=== PATIENT | female | born 2005 | race Caucasian/White ===

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

== ENCOUNTER → 2023-06-01 | Outpatient (CLI) | payer OTHER ==
[2023-06-01 15:29] LABS: Ionized Calcium 5.3 mg/dL (4.5-5.3)
[2023-06-01 18:54] LABS: Basophils # (A) 0.03 X 10*3/uL (0.00-0.10); Basophils % (A) 0.4 %; Eosinophils # (A) 0.18 X 10*3/uL (0.04-0.35); Eosinophils % (A) 2.4 %; HCT 40.7 % (37.2-46.3); HGB 13.6 g/dL (12.0-15.0); Lymphocytes # (A) 3.13 X 10*3/uL (0.90-5.00); Lymphocytes % (A) 41.8 %; MCH 30.4 pg (27.0-32.0); MCHC 33.4 g/dL (32.0-37.0); MCV 91.1 FL (80.0-97.0); Mean Platelet Volume 10.4 FL (9.5-12.2); Monocytes # (A) 0.46 X 10*3/uL (0.20-1.00); Monocytes % (A) 6.1 %; NRBC Per 100 WBC 0 X 10*3/uL (0.00-0.01); Neutrophils # (A) 3.67 X 10*3/uL (1.80-7.70); Platelet Count 257 X 10*3/uL (140-440); RBC 4.47 X 10*6/uL (4.10-5.20); RDW 12.5 % (11.5-14.5); WBC 7.49 X 10*3/uL (4.50-10.00)
[2023-06-01 19:26] LABS: % Iron Saturation 21.37 (12.00-45.00); ALT 17 U/L (8-44); AST 21 U/L (13-35); Albumin/Globulin Ratio 2.17 Ratio (1.60-3.17); Alkaline Phosphatase 82 U/L (41-126); BUN/Creat Ratio 11.29 Ratio (12.00-20.00); Blood Urea Nitrogen 7.9 mg/dL (9.0-27.0); Calcium 10.2 mg/dL (8.7-10.3); Carbon Dioxide 23.6 mmol/L (21.6-31.8); Chloride 102 mmol/L (96-109); Ferritin 43.3 ng/mL (10.0-291.0); Globulin 2.3 g/dL (1.6-3.3); Glucose 93 mg/dL (70-110); Iron 84 UG/DL (50-170); Magnesium 1.9 mg/dL (1.5-2.4); Potassium 4.2 mmol/L (3.5-5.5); Sodium 138 mmol/L (135-145); Total Bilirubin 0.3 mg/dL (0.3-1.2); Total Iron Binding Capacity 393 UG/DL (228-460); Total Protein 7.3 g/dL (6.2-8.2)
== END | disposition home or self-care (01) ==
LOC: LABWHC1 14:15
PROVIDERS: ATTEND Registered Nurse
DX: E05.90 Thyrotoxicosis, unspecified without thyrotoxic crisis or storm (principal); R00.2 Palpitations
CPT/HCPCS: 36415; 80053; 82306; 82330; 82607; 82728; 82746; 83540; 83550; 83735; 83970; 84439; 84443; 84481; 85025; 86376

== ENCOUNTER → 2024-03-14 | Outpatient (CLI) | payer OTHER ==
[2024-03-14 15:58] VITALS: BP 108/74; PULSE 95; RESP 18; TEMP 97.9
--- NOTE | 2024-03-14 16:40 | P.SLEEP ---
History of Present Illness DATE: 03/14/2024 CONSULTATION/NEW PATIENT EVALUATION HISTORY OF PRESENT ILLNESS/SLEEP-WAKE EVALUATION: 18-year-old girl had been e valuated in the sleep center for extremely long periods of sleep, difficulties with waking up from sleep and also difficulties with initiating sleep at night. SLEEP SCHEDULE: Usually sleep schedule from 911 PM to 27 PM. FALLING ASLEEP: Patient has difficulties with falling asleep, has TV set in bedroom. DURING SLEEP: Patient usually sleeps on the side and stomach position. No snoring. Patient has a lot of movements during the sleep. Usually patient sleeps through the night without awakenings according to her. Patient sleeps by herself so no additional information. No history of hypnogogical hallucinations, sleep paralysis, or cataplexy. DURING THE DAY/WAKE STATE: In the morning patient wake up tired, has difficulties to pay attention, has problems with memory, concentration, irr itability, depression, anxiety. [place] sleepiness scale is 2. Patient has several rest periods during the day. PAST MEDICAL HISTORY: Anxiety. PAST SURGICAL HISTORY: Tonsillectomy. MEDICATIONS: Please see below. SOCIAL HISTORY: Please see below. FAMILY HISTORY: Please see below. REVIEW OF SYSTEMS: Extremely long periods of sleeps. No fevers. No double vision. No recent chest pain. No shortness of breath. No abdominal pain. No bleeding episodes. No blood in urine. No seizure episodes. PHYSICAL EXAMINATION: GENERAL: A pleasant patient. VITAL SIGNS: Please see below, weight 124 pounds, BMI 19.5. HEENT: PERRLA, EOMI. Evaluation of oropharynx showed tongue protrudes midline, low position of soft palate Mallampati 23. NECK: Supple. No JVD. Thyroid is not palpable. 12.5 inches in circumference. LUNGS: Clear to percussion and to auscultation. Good air exchange. No wheezing or rhonchi. HEART: S1, S2 regular. No murmurs, gallops or rubs. ABDOMEN: Soft and nontender. Bowel sounds are present. No organomegaly appreciated. EXTREMITIES: No clubbing or cyanosis. PROFESSIONAL SECURITY OFFICER: Awake, alert, and oriented x3. Cranial nerves 2 to 7 intact. There is no fasciculation or atrophy noted. No focal deficits observed. ASSESSMENT: 1. Extremely long periods of sleep for more than 12 hours. Possible idiopathic hypersomnia 2. Significant amount of movements during the sleep. Possibly periodic limb movements. 3. Slightly low position of soft palate, rule out obstructive sleep apnea. 4. History of anxiety. PLAN: 1. Polysomnography for evaluation of patient's breathing during sleep, check for periodic limb movements with following multiple sleep latency test for evaluation of possible hypersomnia. 2. Following plan after reading sleep study 3. Preferable position during sleep on the side. 4. No driving if patient feels any sleepiness. Patient is aware of civil and criminal liability for unsafe driving. 5. Sleep hygiene with regular sleep time for at least 7.5-8 hours. Thank you very much for referring this patient for consultation. Sincerely, Baljeet Keene MD, PhD, FAASM. Diplomat of [employer], Sleep Medicine Board by [employer] M[employer] [facility] [place] cc: Vanessa Dove MD Past Medical History Additional Past Medical History / Comment(s): Depression/anxiety History of Any Multi-Drug Resistant Organisms: None Reported Past Surgical History: Tonsillectomy Additional Past Surgical History / Comment(s): Molar Past Psychological History: Anxiety, Bipolar, Depression Additional Psychological History / Comment(s): I take medicine for Bipolar Smoking Status: Never smoker Past Alcohol Use History: None Reported Past Drug Use History: None Reported - Past Family History Father Family Medical History: GERD/Reflux, Hypertension, Sleep Apnea/CPAP/BIPAP Additional Family Medical History / Comment(s): Snoring. (Brother: restless legs, asthma, schizophrenia; sister - Bipolar) Grandparents - cancer, grandfather: thyroid problems Medications and Allergies Home Medications Medication Instructions Recorded Confirmed Type DULoxetine HCL [Cymbalta] 30 mg PO DAILY 03/14/24 03/14/24 History Propranolol [Inderal] 20 mg PO BID 03/14/24 03/14/24 History busPIRone HCL 5 mg PO BID 03/14/24 03/14/24 History lamoTRIgine [lamoTRIgine ER] 25 mg PO DAILY 03/14/24 03/14/24 History Physical Exam Vitals: Vital Signs Temp Pulse Resp BP Pulse Ox 03/14/24 15:57 97.9 F 95 18 108/74 98 Intake and Output 03/14/24 03/14/24 03/14/24 06:59 14:59 22:59 Other: Weight 56.245 kg Sleep Note - Sleep Data ESS Total: 2 - Sleep Note Sleep Note: Temperature: 97.9 F Pulse Rate: 95 Respiratory Rate: 18 Blood Pressure: 108/74 SpO2: 98 Height: 5 ft 6.7 in Weight: 56.245 kg BMI: Neck Circumference: 12.5
== END ==
LOC: 3 N SLEEP 14:51
PROVIDERS: ATTEND Internal Medicine
DX: R40.0 Somnolence (principal); Z86.59 Personal history of other mental and behavioral disorders
CPT/HCPCS: 99211

== ENCOUNTER 2024-04-14 19:28 | Outpatient (CLI) | payer OTHER ==
[2024-04-15 19:08] LABS: Urine Barbiturate Negative (Negative); Urine Cocaine Negative (Negative); Urine Methadone Negative (Negative); Urine Opiates Negative (Negative); Urine Phencyclidine Negative (Negative)
--- NOTE | 2024-04-17 17:38 | P.PCN ---
Description of Procedure: POLYSOMNOGRAPHY REPORT PROCEDURE(S)/DATE(S): Polysomnography 04/14/2024 CLINICAL: Patient has been seen in the sleep center for evaluation of obstructive sleep apnea-hypopnea syndrome. Please see my consultation. Sleep study has been done for evaluation of patient breathing during the sleep. PROCEDURE: The standard montage for clinical polysomnography included the electroencephalogram, the electrooculogram, the mentalis surface electromyography and Lead II cardiography. The respiratory battery consisted of measurements of nasal/buccal air flow, pressure transducer measurements from nose, thoracic and/or abdominal effort and intercostal surface electromyography. Video monitoring has been done to check for any parasomnia events. Nocturnal oxyhemoglobin saturations were obtained by finger oximetry. Step-rogel titration with positive airway pressure was utilized to control the respiratory events, if necessary. RESULTS: During the diagnostic sleep study sleep efficiency was in high range 93.7%. Latency to sleep onset was normal 14.0 min. Sleep architecture showed stage NI was short 3.4%, Delta sleep was in high range 31.1%, REM sleep was short 13.1%. Respiratory channel showed 3 obstructive apneas, 0 mixed apneas, 2 central apneas, 0 hypopneas with lowest oxygen level 89%. Total apnea hypopnea index was 0.7. Heart rate was in the range between 67 and 79, average 73. EMG showed 0 periodic limb movements per hour. IMPRESSIONS: 1. No significant respiratory abnormalities have been documented during the sleep study. 2. No significant periodic limb movements have been documented. 3. Patient has history of long periods of sleep, more than 12 hours, di fferential diagnosis include idiopathic hypersomnia. Please see other impressions from consultation PLAN: 1. I will see patient for follow-up visit to explain results of the test and recommendations. 2. I will discuss with the patient multiple sleep latency test. 3. Sleep hygiene with regular time in bed for at least 8 hours. 4. No driving if feeling sleepiness. Thank you very much for allowing me to participate in the management of your patient. Sincerely, Baljeet Keene MD, PhD, FAASM. Diplomat of [place] [employer], Sleep Medicine Board by [employer] [facility] [place] cc: Vanessa Dove MD
--- NOTE | 2024-04-17 18:38 | P.PCN ---
Description of Procedure: POLYSOMNOGRAPHY AND MSLT REPORT PROCEDURE(S)/DATE(S): Polysomnography 04/14/2024, multiple sleep latency test 04/15/2024 CLINICAL: Patient has been seen in the sleep center for evaluation of obstructive sleep apnea-hypopnea syndrome. Please see my consultation. Sleep study has been done for evaluation of patient breathing during the sleep. Multiple sleep latency test was done if study will be negative for obstructive sleep apnea hypopnea syndrome. PROCEDURE: The standard montage for clinical polysomnography included the electroencephalogram, the electrooculogram, the mentalis surface electromyography and Lead II cardiography. The respiratory battery consisted of measurements of nasal/buccal air flow, pressure transducer measurements from nose, thoracic and/or abdominal effort and intercostal surface electromyography. Video monitoring has been done to check for any parasomnia events. Nocturnal oxyhemoglobin saturations were obtained by finger oximetry. Step-rogel titration with positive airway pressure was utilized to control the respiratory events, if necessary. RESULTS: During the diagnostic sleep study sleep efficiency was in high range 93.7%. Latency to sleep onset was normal 14.0 min. Sleep architecture showed stage NI was short 3.4%, Delta sleep was in high range 31.1%, REM sleep was short 13.1%. Respiratory channel showed 3 obstructive apneas, 0 mixed apneas, 2 central apneas, 0 hypopneas with lowest oxygen level 89%. Total apnea hypopnea index was 0.7. Heart rate was in the range between 67 and 79, average 73. EMG showed 0 periodic limb movements per hour. Multiple sleep latency test have been done on the following day, consisted from 5 naps. Patient fell asleep on second and third nap. Mean sleep latency subsequently was 17.0 minutes. 1 sleep onset REM have been documented on nap 3. IMPRESSIONS: 1. No significant respiratory abnormalities have been documented during the sleep study. 2. No significant periodic limb movements have been documented. 3. Multiple sleep latency test did not confirmed sleepiness. Please see other impressions from consultation PLAN: 1. I will see patient for follow-up visit to explain results of the test and recommendations. 2. Sleep hygiene with regular time in bed for at least 8 hours. 3. No driving if feeling sleepiness. Thank you very much for allowing me to participate in the management of your patient. Sincerely, Baljeet Keene MD, PhD, FAASM. Diplomat of [place], Sleep Medicine Board by [place] Machine Operator [facility] [place] cc: Vanessa Dove MD
[2024-04-17 19:43] LABS: Urine Alcohol Negative (Negative)
== END 2024-04-15 16:25 | disposition home or self-care (01) ==
LOC: 3 N SLEEP 19:28
PROVIDERS: ATTEND Internal Medicine
DX: G47.33 Obstructive sleep apnea (adult) (pediatric) (principal)
CPT/HCPCS: 80306; 95805; 95810

== ENCOUNTER → 2024-04-25 | Outpatient (CLI) | payer OTHER ==
[2024-04-25 14:01] VITALS: BP 111/76; PULSE 96; RESP 16; TEMP 98.1
--- NOTE | 2024-04-25 15:03 | P.PROGSL ---
Subjective DATE: 04/25/2024 FOLLOW UP VISIT. Patient returned to sleep center for follow-up visit we discussed results of sleep studies and following plan. I discussed results of sleep studies in details. Nomogram did not show abnormalities of respiration. Apnea hypopnea index was 0.7. Normal oxygenation during the sleep, lowest oxygen level was 89%. Multiple sleep latency test on the following day showed mean sleep latency 17.0 minutes which is normal. Patient fell asleep on 2 out of 5 naps. No periodic limb movements have been documented during the sleep study. . [place] sleepiness scale is 4, which is normal. MEDICATIONS: Have been reviewed, please see below. During physical exam: GENERAL: A pleasant patient without any distress. VITAL SIGNS: Please see below. HEENT: PERRLA, EOMI. NECK: Supple. No JVD. LUNGS: Clear to percussion and to auscultation. Good air exchange. No wheezing or rhonchi. HEART: S1, S2 regular. ABDOMEN: Soft and nontender. EXTREMITIES: No clubbing or cyanosis. BUSINESS BANKING SALES ASSISTANT: Awake, alert, and oriented x3. No focal deficit. Impressions: 1. No significant respiratory abnormalities have been documented during polysomnogram. 2. No periodic limb movements. 3. Multiple sleep latency test showed normal sleep latency. 4. History of anxiety. 5. History of long sleep up to 12 hours at night. Plan: 1. Sleep hygiene with regular time in bed for at least 8 hours. 2. Precautions related to driving. No driving if feel any sleepiness. Patient is aware about civil and criminal liability for unsafe driving, promised to follow recommendations. 3. Follow up visit in 12 months or earlier if patient has any problems. Thank you very much for allowing me to participate in the management of your patient. Baljeet Keene MD, PhD, FAASM. Diplomat of [place] [employer], Sleep Medicine Board by [employer] W[employer]ing Machine Operator [facility] [place] cc: Vanessa Dove MD Objective - Vital Signs Vital Signs: Vital Signs Temp 98.1 F 04/25/24 13:56 Pulse 96 04/25/24 13:56 Resp 16 04/25/24 13:56 BP 111/76 04/25/24 13:56 Pulse Ox 98 04/25/24 13:56 FiO2 Intake & Output 04/24/24 04/25/2404/25/25 18:59 06:59 18:59 Weight 56.245 kg Home Medications: Home Medications Medication Instructions Recorded Confirmed Type DULoxetine HCL [Cymbalta] 30 mg PO DAILY 03/14/24 03/14/24 History Propranolol [Inderal] 20 mg PO BID 03/14/24 03/14/24 History busPIRone HCL 5 mg PO BID 03/14/24 03/14/24 History lamoTRIgine [lamoTRIgine ER] 25 mg PO DAILY 03/14/24 03/14/24 History
== END ==
LOC: 3 N SLEEP 13:40
PROVIDERS: ATTEND Internal Medicine
DX: G47.33 Obstructive sleep apnea (adult) (pediatric) (principal)
CPT/HCPCS: 99212